=== PATIENT | female | born 1955 | race Caucasian/White ===

== ENCOUNTER 2018-05-23 16:19 | Inpatient (IN) ==
[2018-05-23] MEDS ORDERED: Haloperidol Inj 5 MG/ML Ampul ONE (16:25)
[2018-05-23] MEDS ORDERED: Haloperidol Inj 5 MG/ML Ampul IM ONE (16:32)
[2018-05-23] MEDS ORDERED: Sod Chloride 0.9% Inj 1,000 ML IV.SIG ONE (16:33)
[2018-05-23 17:27] LABS: Baso % (Auto) 0.5 % (0.0-2.0); Eos # (Auto) 0.1 th/mm3 (0.0-0.4); Eos % (Auto) 1.7 % (0.0-4.0); Hematocrit 38.6 % (35.0-46.0); Hemoglobin 13.7 gm/dL (11.6-15.3); Lymph # (Auto) 1.3 th/mm3 (1.0-4.8); Lymph % (Auto) 16.7 % (9.0-44.0); Mean Corpuscular HGB Conc 35.6 % (32.0-36.0); Mean Corpuscular Hemoglobin 33.9 pg (27.0-34.0); Mean Corpuscular Volume 95.4 fL (80.0-100.0); Mean Platelet Volume 8.5 fL (7.0-11.0); Mono # (Auto) 0.6 th/mm3 (0.0-0.9); Mono % (Auto) 7.2 % (0.0-8.0); Neut # (Auto) 5.9 th/mm3 (1.8-7.7); Neut % (Auto) 73.9 % (16.0-70.0); Platelet Count 209 th/mm3 (150-450); Red Blood Count 4.04 mil/mm3 (4.00-5.30); Red Cell Distribution Width 12.9 % (11.6-17.2); White Blood Count 7.9 th/mm3 (4.0-11.0)
[2018-05-23 17:59] LABS: Alanine Aminotransferase 40 U/L (10-53); Albumin 3.8 g/dL (3.4-5.0); Alkaline Phosphatase 105 U/L (45-117); Anion Gap 8 meq/L (5-15); Aspartate Aminotransferase 48 U/L (15-37); Blood Urea Nitrogen 19 mg/dL (7-18); Calcium 8.6 mg/dL (8.5-10.1); Chloride 108 meq/L (98-107); Glomerular Filtration Rate 46 mL/min (>89); Glucose,Random 107 mg/dL (74-106); Magnesium 1.5 mg/dL (1.5-2.5); Sodium 144 meq/L (136-145); Total Protein 7.3 g/dL (6.4-8.2); Troponin I 0.04 ng/mL (0.02-0.05)
[2018-05-23 18:00] LABS: Alcohol 5 mg/dL (0-5)
[2018-05-23 18:03] LABS: Potassium 2.8 meq/L (3.5-5.1)
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
[2018-05-24] MEDS: dilTIAZem CD 240 MG Capsule PO SCH (08:28)
[2018-05-24] MEDS: Topiramate 25 MG Tablet PO SCH ×2 (08:28→21:58)
[2018-05-24] MEDS: Triamterene/HCTZ 37.5 MG/25 MG Tablet PO SCH (08:29)
[2018-05-24] MEDS ORDERED: Duloxetine 60 MG DR Capsule PO SCH ×2 (09:00→12:30)
[2018-05-24 10:33] LABS: Calcium 8.9 mg/dL (8.5-10.1); Carbon Dioxide 26.8 meq/L (21.0-32.0)
[2018-05-24 10:37] LABS: Chol/HDL Ratio 2.86 Ratio; Potassium 2.7 meq/L (3.5-5.1)
[2018-05-24] MEDS: Magnesium Oxide 400 MG Tablet PO SCH ×2 (11:39→14:47)
[2018-05-24] MEDS ORDERED: LORazepam 1 MG Tablet PO PRN (12:26)
[2018-05-24] MEDS: oxyCODONE/Acetaminophen 10/325 Tablet PO PRN (14:32)
[2018-05-24] MEDS: Haloperidol 5 MG Tablet PO SCH ×2 (14:33→21:58)
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
--- NOTE | 2018-05-24 16:40 | ECG ---
Date Performed: 05/23/2018 Time Performed: 19:09:32 PTAGE: 89 years EKG: Sinus rhythm NORMAL ECG NO PREVIOUS TRACING DOCTOR: Vincent Cornejo Interpretating Date/Time 05/24/2018 16:38:29
[2018-05-24 17:18] LABS: Hemoglobin A1c 5.1 % (4.3-6.0)
[2018-05-24] MEDS: Gabapentin 400 MG Capsule PO SCH ×2 (18:51→21:58)
[2018-05-24] MEDS: Dicyclomine 10 MG Capsule PO SCH ×2 (18:52→21:58)
[2018-05-24] MEDS: levETIRAcetam 500 MG Tablet PO SCH (21:58)
[2018-05-25] MEDS: oxyCODONE/Acetaminophen 10/325 Tablet PO PRN ×2 (03:58→12:27)
[2018-05-25] MEDS: Gabapentin 400 MG Capsule PO SCH ×4 (08:28→21:28)
[2018-05-25] MEDS: Triamterene/HCTZ 37.5 MG/25 MG Tablet PO SCH (08:29)
[2018-05-25] MEDS: Topiramate 25 MG Tablet PO SCH ×2 (08:29→21:28)
[2018-05-25] MEDS: Duloxetine 60 MG DR Capsule PO SCH (08:29)
[2018-05-25] MEDS: Dicyclomine 10 MG Capsule PO SCH ×4 (08:29→21:29)
[2018-05-25] MEDS: levETIRAcetam 500 MG Tablet PO SCH ×2 (08:29→21:29)
[2018-05-25] MEDS: Haloperidol 5 MG Tablet PO SCH ×2 (08:29→21:28)
[2018-05-25] MEDS: dilTIAZem CD 240 MG Capsule PO SCH (08:29)
--- NOTE | 2018-05-25 08:56 | P.PNPSY ---
Subjective Remarks: Patient seen for follow-up, chart reviewed. Discussion with nursing staff reported that patient did endorse any delusions last night, slept, cooperative, no behavioral disturbances, compliant with medications. Patient was found lying in hospital bed asleep was able to wake up to engage in interview today. Patient states she is sleeping better, states her appetite is good, her mood is "good", continues to report that she hears a voice of God and that "the bad one is gone". Patient denies any suicidal homicidal ideations. Patient is alert and oriented x3. Patient has been came to visit patient when she refused to see him and continues to refuse to be in contact with him at this point. She states that her house has poison in the home referring to asbestos in the home. She states she had been living in her home for the past 3 years and has not had this worry prior. She continues to refuse to communicate with her . Review of Systems All other systems reviewed negative except as stated in HPI Mental Status Examination Appearance: Appropriate (In [facility]) Consciousness: Alert Orientation: Person, Place, Date/Time Motor Activity: Abnormal gait Speech: Unremarkable Language: Adequate Fund of Knowledge: Inadequate Attention and Concentration: Easily distracted Memory: Impaired (Regarding events prior to her admission) Mood: Good Affect: Blunt (But reactive at times) Thought Process & Associations: Disorganized (at times), Other ([place]) Thought Content: Bizarre thinking, Hallucinations, Preoccupations (religiously) , Delusional (there is poison in the house) Hallucination Type: Auditory (the voice of God) Delusion Type: Paranoid Suicidal Ideation: No Suicidal Plan: No Suicidal Intention: No Homicidal Ideation: No Homicidal Plan: No Homicidal Intention: No Insight: Poor Judgment: Poor Assessment and Plan - Assessment (1) Psychosis Code(s): F29 - Unspecified psychosis not due to a substance or known physiological condition Status: Acute - Plan Plan: Patient this time noted with no behavioral disturbances, she continues to endorse hearing the voice of God but denies hearing the voice of the devil. She is also endorsing delusions that there is poison in the home, specifically as best this. She continues to refuse to engage in conversation with her stating that she does not want to return back to the house. We will continue current treatment. Continue to monitor mood and behavior. We will discontinue one-to-one observation as patient with no behavioral disturbances since admission to the inpatient unit. Discharge planning in progress. Justification for Continued Inpatient Stay: At risk of further decompensation at lower level care.
[2018-05-25] MEDS ORDERED: levETIRAcetam 500 MG Tablet PO SCH (09:00)
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
[2018-05-25 10:55] LABS: Calcium 9.6 mg/dL (8.5-10.1); Carbon Dioxide 30.2 meq/L (21.0-32.0)
--- NOTE | 2018-05-25 11:00 | P.PNPSY ---
Subjective Chief Complaint: Psychosis Remarks: The patient was seen for the purpose of providing a second opinion to the Joy act order. Chart reviewed to include emergency department paperwork and the attending's history and physical. Patient discussed with nursing staff; we reviewed the patient's mood, thoughts, and behaviors since arrival to the unit. Patient was seen during recreational therapy she was conversing with peers and staff and behaving in an appropriate manner. The patient was asked about the situation leading to her admission and she reports "I wanted to come in to get some rest and get evaluated because I was not feeling good." Patient reports that she is feeling better since admission she feels safe on the unit. She denies any suicidal or homicidal ideations. She is happy to report continued auditory hallucinations in the form of a male voice who she believes is God talking to her. She denies that there are any command hallucinations to hurt herself or hurt anyone else. Review of Systems All other systems reviewed negative except as stated in HPI Mental Status Examination Appearance: Appropriate (In [facility]) Consciousness: Alert Orientation: Person, Place, Date/Time Motor Activity: Abnormal gait (Using a wheelchair) Speech: Unremarkable Language: Adequate Fund of Knowledge: Inadequate Attention and Concentration: Easily distracted Memory: Impaired (Regarding events prior to her admission) Mood: Good Affect: Blunt (But reactive at times) Thought Process & Associations: Disorganized (at times), Other ([place]) Thought Content: Hallucinations, Preoccupations (religiously) Hallucination Type: Auditory (the voice of God) Delusion Type: Paranoid (Believing there is poison in her home) Suicidal Ideation: No Suicidal Plan: No Suicidal Intention: No Homicidal Ideation: No Homicidal Plan: No Homicidal Intention: No Insight: Poor Judgment: Poor Assessment and Plan - Assessment (1) Psychosis Code(s): F29 - Unspecified psychosis not due to a substance or known physiological condition Status: Acute - Plan Plan: BA 32 completed and placed on chart; patient meets criterion 1B of the Joy act and that she does not fully understand her need for psychiatric admission and she meets criterion 2A that she is a substantial risk of self neglect if she were discharged to her own care. Justification for Continued Inpatient Stay: Patient remains an elevated risk for self-harm by self neglect and will require further inpatient stabilization and preparation of a safe discharge plan. Moving patient to a less restrictive environment at this time may result in decompensation.
[2018-05-25 11:04] LABS: Potassium 3.8 meq/L (3.5-5.1)
[2018-05-25] MEDS: Lidocaine 5% Patch T-DERMAL SCH (12:28)
[2018-05-26] MEDS: oxyCODONE/Acetaminophen 10/325 Tablet PO PRN ×2 (00:54→09:02)
[2018-05-26] MEDS: Lidocaine 5% Patch T-DERMAL SCH (09:01)
[2018-05-26] MEDS: Dicyclomine 10 MG Capsule PO SCH ×4 (09:02→22:06)
[2018-05-26] MEDS: Topiramate 25 MG Tablet PO SCH ×2 (09:02→22:06)
[2018-05-26] MEDS: Gabapentin 400 MG Capsule PO SCH ×4 (09:02→22:06)
[2018-05-26] MEDS: Haloperidol 5 MG Tablet PO SCH ×2 (09:02→22:06)
[2018-05-26] MEDS: dilTIAZem CD 240 MG Capsule PO SCH (09:02)
[2018-05-26] MEDS: Triamterene/HCTZ 37.5 MG/25 MG Tablet PO SCH (09:02)
[2018-05-26] MEDS: Duloxetine 60 MG DR Capsule PO SCH (09:03)
[2018-05-26] MEDS: levETIRAcetam 500 MG Tablet PO SCH ×2 (09:04→22:07)
--- NOTE | 2018-05-26 10:15 | MG ---
cc: Sergei Erickson MD EEG RECORD NUMBER: [id number] DESCRIPTION: Polymorphic 2-3 Hz delta activity with overriding 5-6 Hz activity, 20-50 microvolts. Good EEG variability reactivity. Attenuation and slowing of background with transition in drowsy stage I sleep followed by K complexes transition into stage II sleep. Limited driving with photic stimulation. Single lead EKG showing sinus rhythm. INTERPRETATION: Mild encephalopathy in sleep state. Clinical correlation. MD ADDIE Huizar/joyce/melita , 08:17 AM , 08:23 AM
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
--- NOTE | 2018-05-26 12:46 | P.PNPSY ---
Subjective Chief Complaint: Psychosis Remarks: Patient was seen and case discussed with nursing. Patient is pleasant and cooperative with exam. She says she feels "much better." She is behaving well per nursing. She says she is sleeping well. She says that her auditory hallucinations have resolved today. She is preoccupied with heaven however. She denies suicidal or homicidal ideation intent or plan Review of Systems All other systems reviewed negative except as stated in HPI Mental Status Examination Appearance: Appropriate (In [facility]) Consciousness: Alert Orientation: Person, Place, Date/Time Motor Activity: Abnormal gait (Using a wheelchair) Speech: Unremarkable Language: Adequate Fund of Knowledge: Inadequate Attention and Concentration: Easily distracted Memory: Impaired (Regarding events prior to her admission) Mood: Good Affect: Blunt (But reactive at times) Thought Process & Associations: Disorganized (at times), Other ([place]) Thought Content: Hallucinations, Preoccupations (religiously) Hallucination Type: Auditory (Denies today) Delusion Type: Paranoid (Believing there is poison in her home) Suicidal Ideation: No Suicidal Plan: No Suicidal Intention: No Homicidal Ideation: No Homicidal Plan: No Homicidal Intention: No Insight: Poor Judgment: Poor Assessment and Plan - Assessment (1) Psychosis Code(s): F29 - Unspecified psychosis not due to a substance or known physiological condition Status: Acute - Plan Plan: Continue current treatment plan Justification for Continued Inpatient Stay: Patient would decompensate in a less restrictive setting
[2018-05-27] MEDS: oxyCODONE/Acetaminophen 10/325 Tablet PO PRN (06:57)
[2018-05-27] MEDS: levETIRAcetam 500 MG Tablet PO SCH ×2 (08:22→21:40)
[2018-05-27] MEDS: Lidocaine 5% Patch T-DERMAL SCH (08:22)
[2018-05-27] MEDS: Haloperidol 5 MG Tablet PO SCH ×2 (08:22→21:39)
[2018-05-27] MEDS: Duloxetine 60 MG DR Capsule PO SCH (08:22)
[2018-05-27] MEDS: Gabapentin 400 MG Capsule PO SCH ×4 (08:22→21:39)
[2018-05-27] MEDS: Topiramate 25 MG Tablet PO SCH ×2 (08:22→21:39)
[2018-05-27] MEDS: Dicyclomine 10 MG Capsule PO SCH ×4 (08:22→21:39)
[2018-05-27] MEDS: dilTIAZem CD 240 MG Capsule PO SCH (08:22)
[2018-05-27] MEDS: Triamterene/HCTZ 37.5 MG/25 MG Tablet PO SCH (08:22)
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
[2018-05-28] MEDS: oxyCODONE/Acetaminophen 10/325 Tablet PO PRN ×2 (03:46→16:19)
[2018-05-28] MEDS: Topiramate 25 MG Tablet PO SCH ×2 (08:55→20:11)
[2018-05-28] MEDS: Duloxetine 60 MG DR Capsule PO SCH (08:55)
[2018-05-28] MEDS: Haloperidol 5 MG Tablet PO SCH (08:56)
[2018-05-28] MEDS: Gabapentin 400 MG Capsule PO SCH ×4 (08:56→20:10)
[2018-05-28] MEDS: dilTIAZem CD 240 MG Capsule PO SCH (08:56)
[2018-05-28] MEDS: levETIRAcetam 500 MG Tablet PO SCH ×2 (08:56→20:11)
[2018-05-28] MEDS: Triamterene/HCTZ 37.5 MG/25 MG Tablet PO SCH (08:56)
[2018-05-28] MEDS: Lidocaine 5% Patch T-DERMAL SCH (08:57)
[2018-05-28] MEDS: Dicyclomine 10 MG Capsule PO SCH ×4 (08:57→20:11)
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
[2018-05-28] MEDS ORDERED: Haloperidol 5 MG Tablet PO SCH (21:00)
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
[2018-05-29] MEDS ORDERED: Haloperidol 5 MG Tablet PO SCH (09:00)
[2018-05-29] MEDS: Topiramate 25 MG Tablet PO SCH ×2 (09:24→20:42)
[2018-05-29] MEDS: Duloxetine 60 MG DR Capsule PO SCH (09:24)
[2018-05-29] MEDS: Triamterene/HCTZ 37.5 MG/25 MG Tablet PO SCH (09:24)
[2018-05-29] MEDS: levETIRAcetam 500 MG Tablet PO SCH ×2 (09:24→20:41)
[2018-05-29] MEDS: Gabapentin 400 MG Capsule PO SCH ×4 (09:24→20:41)
[2018-05-29] MEDS: dilTIAZem CD 240 MG Capsule PO SCH (09:24)
[2018-05-29] MEDS: Dicyclomine 10 MG Capsule PO SCH ×4 (09:24→20:41)
[2018-05-29] MEDS: oxyCODONE/Acetaminophen 10/325 Tablet PO PRN ×2 (09:25→18:25)
[2018-05-29] MEDS: Lidocaine 5% Patch T-DERMAL SCH (09:27)
--- NOTE | 2018-05-29 15:44 | P.TTN ---
- Patient Problems Problems: 1. Discharge planning 2. Medication compliance 3. Knowledge deficit 4. Lack of coping skills - Progress Toward Goals Provider Present: Dr. Ramakrishna Santamaria Provider Input: 05/28/2018; per doctor patient's medication is being titrated, to address mood, and parnoid thoughts Nurse(s) Present: RN Nurse Input: 05/28/2018; patient is eating meals and taking medication, less anxious Psychiatric Counselors Present: Mireille Gonzalez [facility] Psychiatric Therapist Input: 05/28/2018; counselor will schedule family meeting Group Spec/RT/OT/RIOS Present: Daniel Miller OT Group Spec/RT/OT/RIOS Input: 05/28/2018; patient is participating with limited/ selective groups and activies - Documentation Teaching Recipient: Patient
[2018-05-29] MEDS: Haloperidol 5 MG Tablet PO SCH (20:41)
[2018-05-30] MEDS: Dicyclomine 10 MG Capsule PO SCH ×4 (08:26→20:56)
[2018-05-30] MEDS: Duloxetine 60 MG DR Capsule PO SCH (08:26)
[2018-05-30] MEDS: Haloperidol 5 MG Tablet PO SCH ×2 (08:26→20:56)
[2018-05-30] MEDS: dilTIAZem CD 240 MG Capsule PO SCH (08:26)
[2018-05-30] MEDS: Gabapentin 400 MG Capsule PO SCH ×4 (08:26→20:55)
[2018-05-30] MEDS: levETIRAcetam 500 MG Tablet PO SCH ×2 (08:26→20:56)
[2018-05-30] MEDS: Lidocaine 5% Patch T-DERMAL SCH (08:27)
[2018-05-30] MEDS: Triamterene/HCTZ 37.5 MG/25 MG Tablet PO SCH (08:27)
[2018-05-30] MEDS: Topiramate 25 MG Tablet PO SCH ×2 (08:27→20:56)
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
[2018-05-30 16:29] VITALS: RESP 18
[2018-05-31 06:05] VITALS: BP 118/62; PULSE 59; TEMP 97.6; O2SAT 96
[2018-05-31] MEDS: Duloxetine 60 MG DR Capsule PO SCH (08:07)
[2018-05-31] MEDS: Topiramate 25 MG Tablet PO SCH (08:07)
[2018-05-31] MEDS: levETIRAcetam 500 MG Tablet PO SCH (08:07)
[2018-05-31] MEDS: dilTIAZem CD 240 MG Capsule PO SCH (08:07)
[2018-05-31] MEDS: Lidocaine 5% Patch T-DERMAL SCH (08:07)
[2018-05-31] MEDS: Dicyclomine 10 MG Capsule PO SCH ×2 (08:07→13:01)
[2018-05-31] MEDS: Gabapentin 400 MG Capsule PO SCH ×2 (08:07→13:01)
[2018-05-31] MEDS: Haloperidol 5 MG Tablet PO SCH (08:07)
[2018-05-31] MEDS: Triamterene/HCTZ 37.5 MG/25 MG Tablet PO SCH (08:07)
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
== END 2018-05-31 13:40 | disposition home or self-care (01) | DRG 885 ==
LOC: NEPC 16:19 → NEDA 23:37 → EDBD 23:37 → H4EA 05-24 00:55
PROVIDERS: ADMIT Student in an Organized Health Care Education/Training Program; ATTEND Student in an Organized Health Care Education/Training Program
CPT/HCPCS: 70450; 72040; 73600; 80048; 80053; 80061; 80307; 83036; 83735; 84132; 84484; 85025; 90761; 90772; 90774; 90782; 90784; 90791; 93005; 95819; 96361; 96372; 96374; 99285; C8952; J1200; J1630; J2060; J3480; J7030; Q0163